=== PATIENT | male | born 1940 | race Caucasian/White ===

== ENCOUNTER → 2020-11-09 | Outpatient (CLI) | payer MEDICARE ==
[2020-11-09 12:40] LABS: FREE T4 1.2 NG/DL (0.76-1.46); THYROID STIMULATING HORMONE 0.953 uIU/ML (0.358-3.740)
== END ==
LOC: M LAB 11:15
PROVIDERS: ATTEND Internal Medicine Gastroenterology
DX: R19.7 Diarrhea, unspecified (principal)

== ENCOUNTER → 2020-12-27 | Outpatient (CLI) | payer MEDICARE ==
[~2020-12-27] MED LIST: CLOP75TA2 PO; CREO3600 PO; LISI10TA22 PO; METO50TA7 PO; PANT40TA29 PO; SIMV40TA20 PO; SUCR1TAB56 PO; TAMS1CAP17 PO
--- NOTE | 2020-12-27 16:24 | DEXAMM ---
INDICATION: NONDISPLACED FX OF 2ND METATARSAL BONE RIGHT FOOT. COMPARISON: None. TECHNIQUE: Bone density was measured using dual-energy x-ray absorptiometry (DEXA). FINDINGS: AP SPINE L1-L4 BMD 1.305 g/cm2 Young Adult T-Score 0.9 Age Matched Z-Score 1.3. LT FEMUR, TOTAL BMD 0.922 g/cm2 Young Adult T-Score -0.7 Age Matched Z-Score -0.1. LT NECK BMD 0.745 g/cm2 Young Adult T-Score -2.1 Age Matched Z-Score -1.0. RT FEMUR, TOTAL BMD 1.000 g/cm2 Young Adult T-Score -0.1 Age Matched Z-Score 0.4. RT NECK BMD 0.808 g/cm2 Young Adult T-Score -1.7 Age Matched Z-Score -0.5. IMPRESSION: There is normal bone density of the spine. There is low bone density of the left hip. There is low bone density of the right hip. FOLLOW-UP: Recommendation for the next bone density exam: 2 years. <Electronically signed by Stefan Celeste > 12/27/20 1220
== END ==
LOC: M WHC 15:12
PROVIDERS: ATTEND Physician Assistant Surgical
DX: S92.324A Nondisplaced fracture of second metatarsal bone, right foot, initial encounter for closed fracture (principal); M85.851 Other specified disorders of bone density and structure, right thigh; M85.852 Other specified disorders of bone density and structure, left thigh; X58.XXXA Exposure to other specified factors, initial encounter; Y92.9 Unspecified place or not applicable; Y93.9 Activity, unspecified; Y99.9 Unspecified external cause status

== ENCOUNTER → 2020-12-29 | Outpatient (CLI) | payer MEDICARE | LOC: M LABSMTC 10:44 | PROVIDERS: ATTEND Anesthesiology | DX: Z01.812 Encounter for preprocedural laboratory examination (principal); Z20.822 Contact with and (suspected) exposure to COVID-19 ==

== ENCOUNTER 2021-01-03 09:45 | Day surgery (SDC) | payer MEDICARE ==
[~2021-01-03] VITALS: Ht 182.9 cm; Wt 79.4 kg
[~2021-01-03 09:45] MED LIST changes: +LIDOCAINE 2% 100MG/5ML SDV (FOR ANES.) As Ordered ONE; +NS 1,000 ML IV ONE; +propofoL 200 MG/20 ML VIAL As Ordered ONE
[2021-01-03] MEDS ORDERED: fentaNYL 100 MCG/2 ML INJECTION (J3010) As Ordered ONE (11:04)
--- NOTE | 2021-01-03 11:52 | ROOR ---
Patient Name: Jose Duenas Procedure Date: 01/03/2021 11:22 AM Date of : 1940 Age: 80 Room: [facility] Gender: Male Note Status: Finalized Procedure: Upper GI endoscopy Indications: Melena Providers: David Woodard MD Referring MD: Matt Sandoval MD Requesting Provider: Medicines: Monitored Anesthesia Care Complications: No immediate complications. Procedure: Pre-Anesthesia Assessment: - The heart rate, respiratory rate, oxygen saturations, blood pressure, adequacy of pulmonary ventilation, and response to care were monitored throughout the procedure. The Endoscope was introduced through the mouth, and advanced to the second part of duodenum. The upper GI endoscopy was accomplished without difficulty. The patient tolerated the procedure well. Findings: The examined esophagus was normal. A single 6 mm angioectasia with no bleeding was found in the gastric antrum. Coagulation for bleeding prevention using argon plasma at 0.8 liters/minute and 30 lara was successful. The exam of the stomach was otherwise normal. A single 10 mm sessile polyp was found in the area of the papilla. Biopsies were taken with a cold forceps for histology. Impression: - Normal esophagus. 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 Treated with argon plasma coagulation (APC). - A single duodenal polyp in the area of the papilla. Biopsied. Recommendation: - Perform a colonoscopy today. Procedure Code(s): --- Professional --- 56549, 59, Esophagogastroduodenoscopy, flexible, transoral; with control of bleeding, any method [id number], Esophagogastroduodenoscopy, flexible, transoral; with biopsy, single or multiple Diagnosis Code(s): --- Professional --- K92.1, Melena (includes Hematochezia) K31.7, Polyp of stomach and duodenum K31.819, Angiodysplasia of stomach and duodenum without bleeding CPT copyright 2019 [employer]. All rights reserved. The codes documented in this report are preliminary and upon telephone exchange operator review may be revised to meet current compliance requirements. David Woodard MD David Woodard MD 01/03/2021 11:52:07 AM Electronically signed by David Woodard MD Number of Addenda: 0 Note Initiated On: 01/03/2021 11:22 AM Estimated Blood Loss: Estimated blood loss: none.
[2021-01-03] MEDS ORDERED: propofoL 200 MG/20 ML VIAL As Ordered ONE (12:06)
--- NOTE | 2021-01-03 12:50 | ROOR ---
Patient Name: Jose Duenas Procedure Date: 01/03/2021 11:23 AM Date of : 1940 Age: 80 Room: [facility] Gender: Male Note Status: Finalized Procedure: Colonoscopy Indications: Clinically significant diarrhea of unexplained origin, Follow-up for history of adenomatous polyps in the colon, For therapy of adenomatous polyps in the colon (adenomatous polyp/fold in rectosigmoid--biopsied, not removed on an outside colonoscopy from 09/22/20) Providers: David Woodard MD Referring MD: Matt Sandoval MD Requesting Provider: Medicines: Monitored Anesthesia Care Complications: No immediate complications. Procedure: Pre-Anesthesia Assessment: - The heart rate, respiratory rate, oxygen saturations, blood pressure, adequacy of pulmonary ventilation, and response to care were monitored throughout the procedure. The Colonoscope was introduced through the anus and advanced to the cecum, identified by appendiceal orifice and ileocecal valve. The colonoscopy was performed without difficulty. The patient tolerated the procedure well. The quality of the bowel preparation was good. Findings: The perianal and digital rectal examinations were normal. A 10 mm polyp was found in the proximal ascending colon. The polyp was multi-lobulated. The polyp was removed with a cold snare. Resection and retrieval were complete. Multiple small and large-mouthed diverticula were found in the sigmoid colon. There was narrowing of the colon in association with the diverticular opening. There was evidence of diverticular spasm. Small Internal Hemorrhoids. The exam was otherwise normal throughout the examined colon. There is no endoscopic evidence of erythema, mass or polyps in the rectum, in the recto-sigmoid colon, in the sigmoid colon.--I do not see any abnormal fold or polyp in area of previous adenoma biopsy) Biopsies for histology were taken with a cold forceps for evaluation of microscopic colitis. Impression: - One 8-10 mm polyp in the proximal ascending colon, removed with a cold snare. Resected and retrieved. - Moderate diverticulosis in the sigmoid colon. There was narrowing of the colon in association with the diverticular opening. There was evidence of diverticular spasm. - Small Internal Hemorrhoids. - Biopsies for histology were taken with a cold forceps for evaluation of microscopic colitis. - (There is no endoscopic evidence of erythema, mass or polyps in the rectum, in the recto-sigmoid colon, in the sigmoid colon. There is no evidence of polyp/lesion in the area of previous biopsy--rectosigmoid/15 cm from verge) Recommendation: - Repeat colonoscopy in 1 year for surveillance. - (I cannot identify any residual polyp in the rectosigmoid/~15 cm from verge today. In view of previously biopsied (not removed) adenoma in the recto-sigmoid, I would recommend a repeat flex sig or colonoscopy in about a year to again review the area) - Resume Plavix (clopidogrel) at prior dose in 2 days. - Await pathology results. - Telephone endoscopist for pathology results in 2 weeks. Procedure Code(s): --- Professional --- 80241, Colonoscopy, flexible; with removal of tumor(s), polyp(s), or other lesion(s) by snare technique Diagnosis Code(s): --- Professional --- K57.30, Diverticulosis of large intestine without perforation or abscess without bleeding D12.6, Benign neoplasm of colon, unspecified Z86.010, Personal history of colonic polyps R19.7, Diarrhea, unspecified K63.5, Polyp of colon CPT copyright 2019 [employer]. All rights reserved. The codes documented in this report are preliminary and upon ladle liner review may be revised to meet current compliance requirements. David Woodard MD David Woodard MD 01/03/2021 12:49:47 PM Electronically signed by David Woodard MD Number of Addenda: 0 Note Initiated On: 01/03/2021 11:23 AM Estimated Blood Loss: Estimated blood loss: none.
[2021-01-03 13:13] VITALS: BP 182/79
== END 2021-01-03 13:15 | disposition home or self-care (01) ==
LOC: M OPP 09:45
PROVIDERS: ATTEND Internal Medicine Gastroenterology
DX: D12.6 Benign neoplasm of colon, unspecified (principal); K57.30 Diverticulosis of large intestine without perforation or abscess without bleeding; K64.8 Other hemorrhoids; Z86.010 Personal history of colon polyps; R19.7 Diarrhea, unspecified; K92.1 Melena; K31.7 Polyp of stomach and duodenum; K31.819 Angiodysplasia of stomach and duodenum without bleeding
CPT/HCPCS: 43239; 43255; 45380; 45385; 88305; J3010

== ENCOUNTER → 2025-02-26 | Outpatient (CLI) | payer MEDICARE ==
[~2025-02-26] MED LIST changes: -LIDOCAINE 2% 100MG/5ML SDV (FOR ANES.) As Ordered ONE; -NS 1,000 ML IV ONE; -propofoL 200 MG/20 ML VIAL As Ordered ONE
== END ==
LOC: M RAD 10:49
PROVIDERS: ATTEND Physician Assistant
DX: K55.1 Chronic vascular disorders of intestine (principal)

== ENCOUNTER → 2025-03-02 | Outpatient (CLI) | payer MEDICARE | LOC: M RAD 10:41 | PROVIDERS: ATTEND Physician Assistant | DX: I70.512 Atherosclerosis of nonautologous biological bypass graft(s) of the extremities with intermittent claudication, left leg (principal); I70.211 Atherosclerosis of native arteries of extremities with intermittent claudication, right leg ==